=== PATIENT | female | born 1960 | race Caucasian/White ===

== ENCOUNTER → 2018-02-28 07:45 | Outpatient (CLI) | payer BC, SELFPAY ==
--- NOTE | 2018-02-28 08:07 | XR_ITS ---
XR cervical spine 5V Ordering Physician: Lenora Qureshi Patient Age: 57 years: Female. Neck discomfort. Neck pain HISTORY: ITS.REASON: NECK DISCOMFORT,SOA,LBP,ABD PAIN TECHNIQUE: Five-view cervical spine series COMPARISON :None FINDINGS . Normal alignment.. No fracture or subluxation. Normal prevertebral soft tissues. Cervical spondylosis and degenerative changes most pronounced C5/6 and possibly early changes C4/5. C5-C6: Degenerative disc space narrowing is seen at C5-C6 with posterior hypertrophic endplate ridging believe at this level the oblique view show the posterior hypertrophic spurring encroaching upon right foramen. C4/5. Disc spaces well-maintained but suspect there may be some very subtle central endplate hypertrophy/spurring at midline. Likely minor central spurring. No foraminal encroachment. Facets appear satisfactory . C1-C2 relationships appear normal IMPRESSION: Cervical spondylosis and developing degenerative changes C-spine most evident C5-C6 At C5-C6 disc space narrowing with mild posterior hypertrophic ridging along with mild right foraminal encroachment due to early spurring
--- NOTE | 2018-02-28 08:07 | XR_ITS ---
XR lumbar spine min 4V Ordering Physician: Lenora Qureshi Patient Age: 57 years: Female HISTORY: ITS.REASON: NECK DISCOMFORT,SOA,LBP,ABD PAIN TECHNIQUE: 5 view lumbar spine series COMPARISON :Chest film from today FINDINGS Chest films from today showed a generous dextro scoliosis at the mid thoracic spine. ; With this there is also a less pronounced compensatorylevoscoliosis at the upper lumbar region upper lumbar spine and thoracolumbar region. With this there is slight disc space narrowing to the right at L1/2, and borderline disc space narrowing to the right right at L2/3.. Marginal osteophytes seen to be most evident on the right at L1/2 L2/3 where levocurvature is most evident. Less evident marginal osteophytes L3/4.. Also borderline disc space narrowing at L4/5 and L5/S1 on final review. . Vertebral bodies intact Pedicles transverse processes appear satisfactory.. SI joints unremarkable. Previous cholecystectomy noted. Moderate stool throughout colon. No renal calculi evident. Small phleboliths pelvic basin IMPRESSION Levoscoliosis upper lumbar spine.....With this there is associated space narrowing to right at L1/2; & Borderline disc space narrowing to the right at L2/3. Marginal osteophytes most notable at levels. Also borderline disc space narrowing at L4/5 and L5/S1 on final review.
--- NOTE | 2018-02-28 08:07 | XR_ITS ---
XR chest 2V HISTORY: Dyspnea ITS.REASON: NECK DISCOMFORT,SOA,LBP,ABD PAIN ORDERING PHYSICIAN: Lenora Qureshi PATIENT AGE: 57 years Technique: PA and lateral chest COMPARISON: None FINDINGS: Lungs are well expanded and clear with no active disease. Heart upper normal size. Normal pulmonary vascularity Abida and mediastinal structures appear satisfactory. Small calcified hilar nodes reflecting old granulomatous disease.. Small 5 x 6 mm calcified granuloma seen at mid right lung, likely at the anterior segment right upper RUL on lateral view. Also small calcified granuloma seen at the medial right lung base. . No pleural effusion or pleural findings. Chest wall unremarkable Scoliosis spine with notable dextroscoliosis mid T-spine (estimate 25 degrees on this nonstanding film ( There is associated compensatory levocurvature at the upper lumbar spine & gradual levocurvature at the upper thoracic spine. Clips upper RUQ from previous cholecystectomy . IMPRESSION:. No acute cardiopulmonary findings. Heart upper normal in size. . Old granulomatous disease Scoliosis.
--- NOTE | 2018-02-28 08:07 | XR_ITS ---
XR abdomen min 2V COMPARISON: None HISTORY: Generalized abdominal pain TECHNIQUE: KUB and upright abdomen FINDINGS: There are scattered stool and gas in the ascending and transverse colon. There is no significant small bowel gas and there are no air-fluid levels. There is no free air. There are surgical clips right upper quadrant from previous cholecystectomy. There is mild diffuse levoscoliotic curvature of the thoracolumbar junction with mild multilevel degenerative changes of the upper lumbar spine. IMPRESSION: Essentially nondiagnostic abdomen
[2018-02-28 09:03] LABS: Basophils % 0.7 % (0.1-2.0); Eosinophils # 0.2 K/mm3 (0.0-0.4); Eosinophils % 3.2 % (0.1-12.0); Hematocrit 40.8 % (37.0-47.0); Hemoglobin 13.1 g/dL (12.2-16.2); Lymphocytes # 1.6 K/mm3 (0.7-4.5); Lymphocytes % 33.2 K/mm3 (10-50); Mean Corpuscular HGB Conc 32.1 g/dL (31.8-35.4); Mean Corpuscular Hemoglobin 27.9 pg (27.0-31.2); Mean Corpuscular Volume 86.9 fl (81-99); Mean Platelet Volume 7.4 fl (7.4-10.4); Monocytes # 0.4 K/mm3 (0.1-1.0); Monocytes % 7.6 % (1.7-9.3); Neutrophils # 2.6 K/mm3 (1.8-7.8); Neutrophils % 55.4 % (37.0-80.0); Platelet Count 268 K/mm3 (142-424); Red Cell Distribution Width 12.8 % (11.5-17.5); White Blood Count 4.7 K/mm3 (4.8-10.8)
[2018-02-28 09:15] LABS: Hemoglobin A1C 6.2 % (0.0-7.0)
[2018-02-28 09:47] LABS: Alanine Aminotransferase 21 U/L (12-78); Albumin Level 3.5 gm/dL (3.4-5.0); Anion Gap 10.8 mEq/L (5-15); Aspartate Amino Transferase 12 U/L (15-37); Bilirubin,Total 0.3 mg/dL (0.2-1.0); Blood Urea Nitrogen 14 mg/dL (7-18); Calcium 8.6 mg/dL (8.5-10.1); Carbon Dioxide 29 mmol/L (21.0-32.0); Chloride 107 mmol/L (98-107); Cholesterol 182 mg/dL (140-200); Creatinine,Serum 0.72 mg/dL (0.55-1.02); Estimated Glomerular Filt Rate 83 ml/min (>60); GFR (African American) 100 ML/MIN (>60); Globulin 3.4 gm/dl (1.3-3.2); Glucose 99 mg/dL (74-106); HDL Cholesterol 57 mg/dL (29-89); Potassium 3.8 mmoL/L (3.5-5.1); Sodium 143 mmol/L (136-145); Total Protein,Serum 6.9 gm/dL (6.4-8.2); Triglycerides 136 mg/dL (30-200); VLDL Cholesterol 27 mg/dL (0-40)
[2018-02-28 09:48] LABS: Alkaline Phosphatase 101 U/L (46-116); Amylase 56 U/L (25-125); Chol/HDL Ratio 3.2 (1-3.5); LDL Cholesterol 98 mg/dL (0-130); Lipase 190 u/L (73-393); Thyroid Stimulating Hormone 5.42 uIU/ml (0.358-3.740)
[2018-03-01 07:16] LABS: Hep A Ab, IgM Negative (Negative); Hepatitis B Core Antibody IgM Negative (Negative); Hepatitis B Surface Antigen Negative (Negative)
[2018-03-01 13:16] LABS: Hepatitis C Antibody <0.1 s/co ratio (0.0-0.9)
== END ==
PROVIDERS: PCP Nurse Practitioner Family; Visit Provider Nurse Practitioner Family
DX: M54.2 Cervicalgia (principal); R06.02 Shortness of breath; M54.5 Low back pain; R10.9 Unspecified abdominal pain; Z13.220 Encounter for screening for lipoid disorders; Z13.6 Encounter for screening for cardiovascular disorders
CPT/HCPCS: 36415; 71046; 72050; 72110; 74019; 80053; 80061; 80074; 82150; 83036; 83690; 84443; 85025; 86677

== ENCOUNTER → 2018-09-05 13:37 | Outpatient (CLI) | payer BC, SELFPAY ==
[2018-09-05 14:05] LABS: Troponin I < 0.02 ng/ml (0.00-0.06)
== END ==
PROVIDERS: Visit Provider Nurse Practitioner Family
DX: R07.89 Other chest pain (principal)
CPT/HCPCS: 36415; 84484

== ENCOUNTER → 2018-09-27 09:52 | Outpatient (CLI) | payer BC, SELFPAY ==
--- NOTE | 2018-09-27 09:57 | CA_ITS ---
PROCEDURE: 2-D M-mode and color Doppler study INDICATIONS FOR THE TEST: Chest pain COPD Heart Murmur Tobacco Smoking Palpitations FatigueX Syncope Edema HypertensionXDiabetes Mellitus Rheumatic Fever SOB DOEXObesity HyperlipidemiaX Family History HD Additional History LF FXN PRE CABG,CAD PATIENT INFORMATION HEIGHT: 65 WEIGHT:155 GENDER: Female B/P:120/69 2-D/M-MODE INTERPRETATION: 2-D MEASUREMENTS OBSERVED VALUES IN CMS Right Ventricular Dimension (RVDd) 2.1 Interventricular Septum (Thickness)(IVsd) .9 Left Ventricular Internal Dimensions(LVIDd) 5.2 Left Ventricular Posterior Wall (Thickness)(LVPWd) .7 Aortic Root 3.1 Aortic Cusp Separation 1.7 Left Atrial Dimensions (LAD) 3.3 2D 1. Left atrium is mildly enlarged, left ventricle is normal size, mild concentric left ventricular hypertrophy, visually estimated ejection fraction 55% with no regional wall motion abnormality. 2. The right atrium and right ventricle are normal size and contractility. 3. The aortic valve is minimally thickened and fibrosed. 4. The mitral and tricuspid valve leaflets are minimally thickened 5. The pulmonic valve is poorly visualized. 6. No significant pericardial effusion noted. DOPPLER INTERROGATION: Doppler interrogation of the aortic, mitral and tricuspid valvular presence of mild mitral and tricuspid regurgitation, calculated right ventricular systolic pressure 34 mmHg, grade 1 diastolic dysfunction seen with tissue Doppler evidence of raised left atrial pressure. CONCLUSION: 1. Mildly enlarged left atrium, normal left ventricular size, mild concentric left ventricular hypertrophy, visually estimated ejection fraction of 55%, grade 1 diastolic dysfunction seen with tissue Doppler evidence of pressure. 2. Mild mitral and tricuspid regurgitation, calculated right ventricular systolic pressure is 34 mmHg. 3. No significant pericardial effusion noted.
== END ==
PROVIDERS: PCP Urology; Visit Provider Urology
DX: Z01.818 Encounter for other preprocedural examination (principal); I25.10 Atherosclerotic heart disease of native coronary artery without angina pectoris
CPT/HCPCS: 93306

== ENCOUNTER 2018-11-29 08:02 | Outpatient (RCR) | payer BC, SELFPAY | END 2019-01-23 13:53 | disposition home or self-care (01) | LOC: PT 08:02 | PROVIDERS: Visit Provider Internal Medicine | DX: Z95.1 Presence of aortocoronary bypass graft (principal) | CPT/HCPCS: 93798 ==

== ENCOUNTER → 2019-07-19 10:21 | Outpatient (CLI) | payer BC, SELFPAY ==
[2019-07-19 11:24] LABS: Basophils % 0.6 % (0.1-2.0); Eosinophils # 0.2 K/mm3 (0.0-0.4); Hematocrit 44.5 % (37.0-47.0); Lymphocytes # 1.4 K/mm3 (0.7-4.5); Lymphocytes % 18.3 % (10-50); Mean Corpuscular HGB Conc 31.5 g/dL (31.8-35.4); Mean Corpuscular Hemoglobin 27.1 pg (27.0-31.2); Mean Corpuscular Volume 85.9 fl (81-99); Mean Platelet Volume 7.7 fl (7.4-10.4); Monocytes # 0.5 K/mm3 (0.1-1.0); Monocytes % 6.5 % (1.7-9.3); Neutrophils # 5.6 K/mm3 (1.8-7.8); Neutrophils % 72.6 % (37.0-80.0); Platelet Count 301 K/mm3 (142-424); Red Blood Count 5.18 M/mm3 (4.20-5.40); Red Cell Distribution Width 14.2 % (11.5-17.5); White Blood Count 7.7 K/mm3 (4.8-10.8)
[2019-07-19 13:27] LABS: Anion Gap 10.7 mEq/L (5-15); Blood Urea Nitrogen 12 mg/dl (7-17); Calcium 9.7 mg/dl (8.4-10.2); Carbon Dioxide 30 mmol/L (22.0-30.0); Chloride 103 mmol/L (98-107); Estimated Glomerular Filt Rate 102 ml/min (>60); GFR (African American) 123 ML/MIN (>60); Glucose 88 mg/dl (74-100); Potassium 4.7 mmoL/L (3.5-5.1); Sodium 139 mmol/L (136-145)
[2019-07-19 13:40] LABS: Troponin I < 0.01 ng/ml (0.00-0.034)
== END ==
PROVIDERS: Visit Provider Urology
DX: I25.10 Atherosclerotic heart disease of native coronary artery without angina pectoris (principal); E78.5 Hyperlipidemia, unspecified; I10 Essential (primary) hypertension; R07.89 Other chest pain; Z82.49 Family history of ischemic heart disease and other diseases of the circulatory system; Z95.1 Presence of aortocoronary bypass graft
CPT/HCPCS: 36415; 80048; 84484; 85025

== ENCOUNTER → 2019-07-24 07:03 | Outpatient (CLI) | payer BC, SELFPAY ==
--- NOTE | 2019-07-24 | CA_ITS ---
APPROVED REPORT Exam: Exercise Treadmill Technologist: luis enrique oakley, Ht: 5 ft 5 in Wt: 145 lbs BSA: 1.73 m2 HR: 63 bpm BP: 172/82 mmHg Indications: CP, SOB Medical History Medications: Lisinopril,,,,, Asa,,,,, Citalopram,,,,, Lasix,,,,, Lipitor,,,,, OmPERAZOLE,,,,, Allergies: Codiene, Naproxen Cardiac Risk Factors: HTN, Hyperlipidemia, Smoking Stress Test Details Test: Berto HR Resting HR: 59 bpm Max Heart Rate (APMHR): 159 bpm Max HR Achieved: 142 bpm Target HR (85% APMHR): 135 bpm % of APMHR: 89 Recovery HR: 87 bpm BP Resting BP: 172/82 mmHg Max BP: 194/92 mmHg Recovery BP: 194.0/92.0 mmHg ECG Resting ECG: Sinus Rhythm Clinical Exercise duration: 08:16 min Highest Stage Achieved: Stage 3: 3.4 mph at 14% grade. Exercise capacity: 10.1 METs Stress ECG Conclusion Berto Protocol completed. Test stopped due to SOB, which resolved during recovery, No chest pain. Occ PVC. Greater than 1.5mm ST depression. Images to follow. Test Summary REST . . . . . . . Standing REST . . . . . . . Sitting REST 02:56 0.0 0.0 59 . 172/ 82 . . Stage 1 01:00 10.0 1.7 87 . . . . Stage 1 02:00 10.0 1.7 104 . 168/ 88 . . Stage 1 03:00 10.0 1.7 105 . 168/ 88 . . Stage 2 01:00 12.0 2.5 112 . . . . Stage 2 02:00 12.0 2.5 113 . . . . Stage 2 03:00 12.0 2.5 114 . 170/100 . . Stage 3 01:00 14.0 3.4 129 . . . . Stage 3 . . . . . . . Cardiolite injected Stage 3 02:00 14.0 3.4 140 . . . . Stage 3 02:16 14.0 3.4 140 . . . Stop exercise at 08:16 RECOVERY 01:00 0.0 0.0 108 . . . . RECOVERY 02:00 0.0 0.0 85 . 194/ 92 . . RECOVERY 03:00 0.0 0.0 75 . 168/ 86 . . RECOVERY 04:00 0.0 0.0 76 . 155/ 79 . . RECOVERY 05:00 0.0 0.0 72 . 148/ 78 . . RECOVERY 05:24 0.0 0.0 0 . 148/ 78 . . Electronically signed by : Masood Lay, 07/24/2019 19:52:23
--- NOTE | 2019-07-24 07:04 | NM_ITS ---
APPROVED REPORT Exam: Nuclear Stress Test Indication: Chest pain, SOB, HTN, High cholesterol, Family history, CAD, CABG Patient Location: Outpatient Stress Tech: Kelsi Solorzano [place] Tech:Michelle Mejía, ARRT, RT (R)(N) Ht: 5 ft 5 in Wt: 145 lbs Bra Size: 38D HR: 63 bpm BP: 172/82 mmHg BSA: 1.73 m2 BMI: 24.1 History: Chest pain, SOB, HTN, High cholesterol, Family history, CAD, CABG Procedure: Patient exercised on Berto protocol 8:16 minutes and sec, resting heart rate 63 bpm, resting blood pressure 172/82 mmHg, with exercise maximum heart rate achived was 142 bpm which is Greater than 85 % of the maximum predicted heart rate and blood pressure was 194/92 mmHg. Test was stopped due to SOB. Patient denied any complaint of chest pain. Patient has Good exercise capacity, achieved 10.1 METs of workload on treadmill, the blood pressure response to exercise was Adequate. Electrocardiogram Resting electrocardiogram showed sinus rhythm nonspecific ST-T changes, with exercise there is additional 1.[address] segment depression noted from the baseline EKG. The EKG portion of the exercise Myoview is nondiagnostic due to baseline abnormal EKG. Cardiac Stress and Resting SPECT Images: Cardiac Stress and Resting SPECT images were obtained using technetium 99m Myoview 32.7 mCi stress and 10.96 mCi at rest. Gated SPECT with analysis of segmental wall motion and calculation of the ejection fraction also done. Cardiac stress and resting SPECT images show uniform myocardial activity without segmental perfusion abnormality, computer derived ejection fraction is over 65% with no regional wall motion abnormality, right ventricle is normal size and contractility. Conclusion: 1. The EKG portion of the exercise Myoview is nondiagnostic due to baseline abnormal EKG. Patient has good exercise capacity achieved 10.1 mets of workload on treadmill, the blood pressure response to exercise was adequate, there was no exercise-induced chest discomfort. 2. No scintigraphic evidence of reversible ischemia seen at this level of exercise, computer derived ejection fraction is over 65% with no regional wall motion abnormality. 3. Normal exercise Myoview study. Electronically signed by : Masood Lay, 07/24/2019 19:56:04
--- NOTE | 2019-07-24 07:20 | HMH.ITSHM ---
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 []OMEPRAZOLE METOPROLOL LISINOPRIL FUROSEMIDE CITALOPRAM ATORVASTATIN ASA
== END ==
PROVIDERS: PCP Internal Medicine; Visit Provider Urology
DX: R07.89 Other chest pain (principal); I25.10 Atherosclerotic heart disease of native coronary artery without angina pectoris; E78.5 Hyperlipidemia, unspecified; I10 Essential (primary) hypertension; Z82.49 Family history of ischemic heart disease and other diseases of the circulatory system; Z95.1 Presence of aortocoronary bypass graft
CPT/HCPCS: 78452; 93017; A9502

== ENCOUNTER → 2020-06-25 15:18 | Outpatient (CLI) | payer BC, SELFPAY ==
[2020-06-25 15:41] LABS: Basophils % 0.8 % (0.1-2.0); Eosinophils # 0.1 K/mm3 (0.0-0.4); Eosinophils % 2.1 % (0.1-12.0); Hematocrit 44.5 % (37.0-47.0); Hemoglobin 13.7 g/dL (12.2-16.2); Lymphocytes # 1.9 K/mm3 (0.7-4.5); Mean Corpuscular HGB Conc 30.8 g/dL (31.8-35.4); Mean Corpuscular Hemoglobin 27.7 pg (27.0-31.2); Mean Corpuscular Volume 90.1 fl (81-99); Mean Platelet Volume 7.5 fl (7.4-10.4); Monocytes # 0.4 K/mm3 (0.1-1.0); Monocytes % 6.3 % (1.7-9.3); Neutrophils # 3.5 K/mm3 (1.8-7.8); Neutrophils % 58.8 % (37.0-80.0); Platelet Count 237 K/mm3 (142-424); Red Blood Count 4.94 M/mm3 (4.20-5.40); Red Cell Distribution Width 13.5 % (11.5-17.5); White Blood Count 5.9 K/mm3 (4.8-10.8)
[2020-06-25 17:09] LABS: Chloride 106 mmol/L (98-107); Potassium 4.4 mmoL/L (3.5-5.1); Sodium 142 mmol/L (136-145)
[2020-06-25 17:11] LABS: Bilirubin,Unconjugated 0.3 mg/dL (0.0-1.1); Blood Urea Nitrogen 14 mg/dl (7-17); Estimated Glomerular Filt Rate 85 ml/min (>60); GFR (African American) 103 ML/MIN (>60)
[2020-06-25 17:12] LABS: Alanine Aminotransferase 14 U/L (12-78); Albumin Level 4.4 g/dl (3.5-5.0); Alkaline Phosphatase 113 U/L (38-126); Anion Gap 10.4 mEq/L (5-15); Aspartate Amino Transferase 29 U/L (14-36); Bilirubin,Direct 0.1 mg/dl (0.0-0.4); Bilirubin,Indirect 0.4 mg/dL (0.0-0.9); Bilirubin,Total 0.5 mg/dl (0.2-1.3); Calcium 9.7 mg/dl (8.4-10.2); Carbon Dioxide 30 mmol/L (22.0-30.0); Chol/HDL Ratio 2.1 (1-3.5); Cholesterol 178 mg/dl (140-200); Glucose 102 mg/dl (74-100); HDL Cholesterol 85 mg/dl (40-60); Total Protein,Serum 7.4 g/dl (6.3-8.2); Triglycerides 155 mg/dl (30-150); VLDL Cholesterol 31 mg/dL (0-40)
[2020-06-25 17:24] LABS: Direct LDL Cholesterol 54.53 mg/dL (100-129)
[2020-06-25 17:30] LABS: Free Thyroxine Index 2.6 ug/dL (5.93-13.13); T4 (Thyroxine) 9.4 ug/dl (5.53-11.0); Triiodothryronine (T3) Uptake 28 % (23.5-40.5)
[2020-06-25 17:44] LABS: Thyroid Stimulating Hormone 2.59 uIU/mL (0.465-4.68)
== END ==
PROVIDERS: Visit Provider Physician Assistant
DX: I25.10 Atherosclerotic heart disease of native coronary artery without angina pectoris (principal); R07.89 Other chest pain; R06.02 Shortness of breath; R94.31 Abnormal electrocardiogram [ECG] [EKG]; E78.5 Hyperlipidemia, unspecified; I10 Essential (primary) hypertension; Z82.49 Family history of ischemic heart disease and other diseases of the circulatory system; Z95.1 Presence of aortocoronary bypass graft; Z79.899 Other long term (current) drug therapy
CPT/HCPCS: 36415; 80048; 80061; 80076; 84436; 84443; 84479; 85025

== ENCOUNTER → 2021-03-04 07:17 | Outpatient (CLI) | payer BC, SELFPAY ==
--- NOTE | 2021-03-04 | CA_ITS ---
APPROVED REPORT Exam: Exercise Treadmill Technologist: Aida Guzman Ht: 5 ft 5 in Wt: 149 lbs BSA: 1.75 m2 HR: 53 bpm BP: 162/81 mmHg Indications: Chest pain Medical History Medications: Lisinopril,,,,, Omeprazole,,,,, Aspirin,,,,, Metoprolol,,,,, Atorvastatin,,,,, Stress Test Details Test: Berto HR Resting HR: 61 bpm Max Heart Rate (APMHR): 158.097267 bpm Max HR Achieved: 128 bpm Target HR (85% APMHR): 134.080969 bpm % of APMHR: 81.01 Recovery HR: 63 bpm BP Resting BP: 162.0/81.0 mmHg Max BP: 180.0/92.0 mmHg Recovery BP: 143.0/81.0 mmHg ECG Resting ECG: Sinus bradycardia, rightward axis, ST abnormalities inferiorly and laterally. Clinical Exercise duration: 07:01 min Highest Stage Achieved: Exercise capacity: 10.1 METs Stress ECG Conclusion Patient exercised 7:01 on Berto Protocol. Test stopped due to shortness of air. Symptoms: No chest pain. Arrhythmias/Ectopy: None ST-T Changes: Exaggeration of baseline ST abnormalities plus 1.[address] depression in leads V3 and V4. Conclusion: Non-diagnostic GXT. Blunted heart rate response on beta-claudette. Myoview images reported separately. Test Summary . Standing . . . . . . Myoview Injected . . Stop exercise at 07:01 . . . . . . Electronically signed by : Masood Lay MD 03/05/2021 06:22:34
--- NOTE | 2021-03-04 07:17 | NM_ITS ---
APPROVED REPORT Exam: Nuclear Stress Test Indication: Chest pain, SOB, CAD, CABG, HTN, Family history Patient Location: Outpatient Stress Tech: Aida Guzman [place] Tech:Michelle Mejía, ARRT, RT (R)(N) Ht: 5 ft 5 in Wt: 145 lbs Bra Size: 38C HR: 53 bpm BP: 162/81 mmHg BSA: 1.73 m2 BMI: 24.1 History: Chest pain, SOB, CAD, CABG, HTN, Family history Procedure: Patient exercised on Berto protocol 7:01 minutes and sec, resting heart rate 53 bpm, resting blood pressure 162/81 mmHg, with exercise maximum heart rate achived was 128 bpm which is 81 % of the maximum predicted heart rate and blood pressure was 176/82 mmHg. Test was stopped due to SOA. Patient denied any complaint of chest pain. Patient has good exercise capacity, achieved 10.1 METs of workload on treadmill, the blood pressure response to exercise was Adequate. Electrocardiogram Resting electrocardiogram shows sinus rhythm nonspecific ST-T changes, with exercise there is additional [address] segment depression noted from the baseline EKG, patient did not achieve the target heart rate, the EKG portion of the exercise Myoview is nondiagnostic due to baseline abnormal EKG as well as patient not achieving the target heart rate. Cardiac Stress and Resting SPECT Images: Cardiac Stress and Resting SPECT images were obtained using technetium 99m Myoview 29.6 mCi stress and 10.37 mCi at rest. Gated SPECT for analysis of segmental wall motion and calculation of the ejection fraction also done. Prone images were also obtained. Cardiac stress and resting SPECT images show uniform myocardial activity without segmental perfusion abnormality, computer derived ejection fraction is 59% with no regional wall motion abnormality, right ventricle is normal size and contractility. Conclusion: 1. The EKG portion of the exercise Myoview is nondiagnostic due to baseline abnormal EKG, patient did not achieve the target heart rate, patient has good exercise capacity achieved 10.1 METs of workload on treadmill, the blood pressure response to exercise was adequate, there was no exercise-induced chest discomfort. 2. No scintigraphic evidence of reversible ischemia seen at this level of exercise, computer derived ejection fraction is 59% with no regional wall motion abnormality, right ventricle is normal size and contractility. Electronically signed by : Masood Lay MD 03/05/2021 06:32:40
--- NOTE | 2021-03-04 09:27 | CA_ITS ---
APPROVED REPORT EXAM: Comprehensive 2D, Doppler, and color-flow Echocardiogram Computer Technician: Dior Golden, NIC, RVS Ht: 5 ft 5 in Wt: 149lbs BSA: 1.75 BP: 136/79 mmHg Indications: CP, SOA, CAD-CABG, Stent 2D Dimensions Aortic Root 2.69 cm LA Volume 48.70 mL Left Atrium 3.26 cm LA Volume Index 27.796985 mL/m2 (M/F) 16-34 LVOT 1.69 cm (M/F) 1.5-2.5 M-Mode Dimensions RVDd 2.65 cm (0.9-2.6) LA Diam 3.53 cm (1.9-4.0) LVDd 4.53 cm (3.5-5.7) Ao Diam 3.03 cm (2.0-3.7) LVDs 2.92 cm (3.5-5.7) IVSd 0.94 cm (0.6-1.1) PWd 0.77 cm (0.6-1.1) EF (Teich) 65.10% EPSs 0.84 cm FS 35.50% EDV (Teich) 93.90 mL TAPSE 2.33 (<1.7) ESV (Teich) 32.80 mL LV Diastology E Decel Time 190.00 (160-240 msec) E/A Ratio 1.33 MED E' 6.40 (< 7 cm/sec) MED A' 7.40 cm/s E'/MED E' Ratio 13.95 (>14) LAT E' 11.80 (<10 cm/sec) LAT A' 6.70 cm/s E/LAT E' Ratio 7.57 (>14) Aortic Valve LVOT Max 98.00 (70-110 cm/s) LVOT VTI 23.91 cm AoV Peak Jose. 158.00 (50-130 cm/s) AO Peak GR. 10.00 mmHg AO Mean GR. 5.00 (<5 mmHg) AO VTI 35.34 (18-25 cm) DARLEEN (VTI) 1.52 (2.5-4.5 cm2) Mitral Valve MV A Velocity 67.00 (40-130 cm/s) E/A Ratio 1.33 MV Decel. Time 190.00 (160-240 ms) MV Mean Gr. 1.30 (<2mmHg) Pulmonary Valve HI End VMAX 164.00 cm/s Tricuspid Valve TR P. Velocity 244.00 cm/s RAP Estimate 10.00 mmHg RVSP 33.80 mmHg Left Ventricle Left atrium is mildly enlarged, left ventricle is normal size, mild concentric left ventricular hypertrophy, visually estimated ejection fraction 55% with no regional wall motion abnormality, grade 2 diastolic dysfunction seen without tissue Doppler evidence of raise left atrial pressure. Right Ventricle Right atrium and right ventricle are normal size and contractility. Aortic Valve Aortic valve is minimally thickened and fibrosed, there is no aortic stenosis or significant aortic insufficiency. Mitral Valve Mitral valve is grossly normal, there is trace mitral regurgitation. Tricuspid Valve Tricuspid grossly normal, there is trace tricuspid regurgitation, calculated right ventricular systolic pressure is within normal range. Pulmonic Valve Pulmonic valve is poorly visualized. Great Vessels Aortic root is normal size. Inferior vena cava is normal size with normal inspiratory collapse. Pericardium No significant pericardial effusion noted. Conclusion 1. Mildly enlarged left atrium, normal left ventricular size, mild concentric left ventricular hypertrophy, visually estimated ejection fraction 55% with no regional wall motion abnormality, grade 2 diastolic dysfunction seen without tissue Doppler evidence of raise left atrial pressure. 2. Trace mitral and tricuspid regurgitation, calculated right ventricular systolic pressure within normal range. 3. No significant pericardial effusion. 4. Inferior vena cava is normal size with normal inspiratory collapse. Electronically signed by : Masood Lay MD 03/04/2021 21:42:16
--- NOTE | 2021-03-04 10:58 | HMH.ITSHM ---
Current Home Medications as stated by this patient Pinky Spears or logistics service representative. []OMEPRAZOLE ASA METOPROLOL LINSNOPRIL ATORVASTATIN
== END ==
LOC: RAD 07:17
PROVIDERS: PCP Nurse Practitioner Family; Visit Provider Urology
DX: I20.8 Other forms of angina pectoris (principal); I10 Essential (primary) hypertension; E78.49 Other hyperlipidemia; Z82.49 Family history of ischemic heart disease and other diseases of the circulatory system; Z95.1 Presence of aortocoronary bypass graft
CPT/HCPCS: 78452; 93017; 93306; A9502

== ENCOUNTER → 2022-08-06 11:35 | Outpatient (CLI) | payer BC, SELFPAY ==
[2022-08-06 12:19] LABS: Basophils # 0.1 K/mm3 (0-0.2); Basophils % 1.3 % (0.1-2.0); Eosinophils # 0.1 K/mm3 (0.0-0.4); Eosinophils % 2.8 % (0.1-12.0); Hematocrit 42.2 % (37.0-47.0); Hemoglobin 12.8 g/dL (12.2-16.2); Lymphocytes # 1.6 K/mm3 (0.7-4.5); Lymphocytes % 32.2 % (10-50); Mean Corpuscular HGB Conc 30.4 g/dL (31.8-35.4); Mean Corpuscular Hemoglobin 26.9 pg (27.0-31.2); Mean Corpuscular Volume 88.6 fl (81-99); Mean Platelet Volume 7.2 fl (7.4-10.4); Monocytes # 0.3 K/mm3 (0.1-1.0); Monocytes % 6.2 % (1.7-9.3); Neutrophils # 2.8 K/mm3 (1.8-7.8); Neutrophils % 57.5 % (37.0-80.0); Platelet Count 247 K/mm3 (142-424); Red Blood Count 4.76 M/mm3 (4.20-5.40); Red Cell Distribution Width 13.7 % (11.5-17.5); White Blood Count 4.9 K/mm3 (4.8-10.8)
[2022-08-06 12:48] LABS: Alanine Aminotransferase 17 U/L (12-78); Albumin Level 4.1 g/dl (3.5-5.0); Alkaline Phosphatase 122 U/L (38-126); Anion Gap 8.7 mEq/L (5-15); Aspartate Amino Transferase 29 U/L (14-36); Bilirubin,Indirect 0.5 mg/dL (0.0-0.9); Bilirubin,Total 0.5 mg/dl (0.2-1.3); Bilirubin,Unconjugated 0.5 mg/dL (0.0-1.1); Blood Urea Nitrogen 12 mg/dl (7-17); Calcium 8.7 mg/dl (8.4-10.2); Carbon Dioxide 30 mmol/L (22.0-30.0); Chloride 104 mmol/L (98-107); Cholesterol 234 mg/dl (140-200); Estimated Glomerular Filt Rate 84 ml/min (>60); GFR (African American) 102 ML/MIN (>60); Glucose 90 mg/dl (74-100); HDL Cholesterol 79 mg/dl (40-60); Potassium 3.7 mmoL/L (3.5-5.1); Sodium 139 mmol/L (136-145); Total Protein,Serum 6.5 g/dl (6.3-8.2); Triglycerides 98 mg/dl (30-150); VLDL Cholesterol 20 mg/dL (0-40)
[2022-08-06 12:58] LABS: Direct LDL Cholesterol 118.96 mg/dL (100-129)
[2022-08-06 13:04] LABS: Free T4 (Free Thyroxine) 0.95 ng/dl (0.78-2.19)
[2022-08-06 13:18] LABS: Thyroid Stimulating Hormone 2.23 uIU/mL (0.465-4.68)
== END ==
LOC: LAB 11:36
PROVIDERS: PCP Family Medicine; Visit Provider Nurse Practitioner
DX: R07.89 Other chest pain (principal); I25.10 Atherosclerotic heart disease of native coronary artery without angina pectoris; I10 Essential (primary) hypertension; E78.49 Other hyperlipidemia; Z82.49 Family history of ischemic heart disease and other diseases of the circulatory system; Z95.1 Presence of aortocoronary bypass graft
CPT/HCPCS: 36415; 80048; 80061; 80076; 84439; 84443; 85025

== ENCOUNTER → 2022-09-23 06:04 | Outpatient (CLI) | payer BC, SELFPAY ==
--- NOTE | 2022-09-23 06:05 | CA_ITS ---
APPROVED REPORT Exam: Exercise Treadmill Technologist: Cassandra Colunga, Ht: 5 ft 5 in Wt: 152 lbs BSA: 1.76 m2 HR: 52 bpm BP: 168/86 mmHg Rhythm: sinus torri, ST abn inferiorly and laterally Medical History Medications: Omeprazole,,,,, Aspirin,,,,, Atorvastatin,,,,, Metoprolol Succinate,,,,, Polytrim,,,,, Cardiac Risk Factors: FHX of CAD Stress Test Details Test: Berto HR Resting HR: 61 bpm Max Heart Rate (APMHR): 156 bpm Max HR Achieved: 191 bpm Target HR (85% APMHR): 133 bpm % of APMHR: 122 Recovery HR: 81 bpm BP Resting BP: 172/96 mmHg Max BP: 196/89 mmHg Recovery BP: 196.0/89.0 mmHg ECG Resting ECG: sinus torri, ST abn inferiorly and laterally Stress ECG: mm ST depression and T-wave changes in the inferolateral leads Arrhythmia: None Recovery ECG: Return to baseline ECG Recovery Arrhythmia: None Clinical Exercise duration: 08:15 min Highest Stage Achieved: Exercise capacity: 10.1 METs Stress ECG Conclusion During Berto protocol, the patient walked 8:15 minutes. The patient exhibited good exercise capacity for age and sex. She was hypertensive at baseline with adequate BP response to exercise. Berto protocol was stopped due to elevated BP (SBP approaching 200 mmHg). No chest pain noted. No arrhythmias noted. Baseline ECG demonstrates sinus bradycardia, early repolarization with diffuse upsloping ST-segments, and Q-waves in the inferior leads. At peak stress, ECG demonstrated 1mm ST depression and T-wave changes in the inferolateral leads, with subsequent return to baseline within 3 minutes of recovery. GXT findings are suggestive of possible ishcemia. Myoview images reported separately. Test Summary REST . . . . . . . Sitting REST . . . . . . . Standing REST 04:35 0.0 0.0 61 . 172/ 96 . . Stage 1 01:00 10.0 1.7 76 . . . . Stage 1 02:00 10.0 1.7 80 . . . . Stage 1 03:00 10.0 1.7 82 . 182/ 84 . . Stage 2 01:00 12.0 2.5 91 . . . . Stage 2 02:00 12.0 2.5 99 . . . . Stage 2 03:00 12.0 2.5 105 . 184/ 84 . . Stage 3 01:00 14.0 3.4 119 . . . . Stage 3 02:00 14.0 3.4 129 . . . . Stage 3 02:15 14.0 3.4 132 . . . Stop exercise at 08:15 RECOVERY 01:00 0.0 0.0 90 . . . . RECOVERY 02:00 0.0 0.0 75 . 196/ 89 . . RECOVERY 03:00 0.0 0.0 65 . 196/ 89 . . RECOVERY 04:00 0.0 0.0 60 . 178/ 80 . . RECOVERY 05:00 0.0 0.0 62 . 160/ 78 . . RECOVERY 05:18 0.0 0.0 64 . 160/ 78 . . Electronically signed by : Danna Anderson, 09/24/2022 00:08:14
--- NOTE | 2022-09-23 06:05 | NM_ITS ---
APPROVED REPORT Exam: Nuclear Stress Test Indication: fatigue Patient Location: Outpatient Stress Tech: Cassandra WEBBER Tech:Saritha JACKI Crain RT(R)(N) Ht: 5 ft 5 in Wt: 145 lbs Bra Size: 38c HR: 61 bpm BP: 172/96 mmHg BSA: 1.73 m2 Rhythm: NSR BMI: 24.1 History: FATIGUE Procedure: Patient exercised on Berto protocol 8:15 minutes and sec, resting heart rate 61 bpm, resting blood pressure 172/96 mmHg, with exercise maximum heart rate achived was 191 bpm which is 122 % of the maximum predicted heart rate and blood pressure was 196/89 mmHg. Patient denied any complaint of chest pain. Patient has good exercise capacity, achieved 10.0 METs of workload on treadmill, the blood pressure response to exercise was adequate. Cardiac Stress and Resting SPECT Images: Cardiac Stress and Resting SPECT images were obtained using technetium 99m Myoview 31.3 mCi stress and 10.98 mCi at rest. Resting and stress imaging in supine and prone positions demonstrate no evidence of fixed or reversible defects. Gated imaging demonstrates normal LV global and regional systolic function. LVEF is calculated at 55% Conclusion: No evidence of fixed or reversible defects. Gated imaging demonstrates normal LV global and regional systolic function. LVEF is calculated at 55% Electronically signed by : Danna Anderson, 09/24/2022 00:14:25
== END ==
LOC: RAD 06:05
PROVIDERS: PCP Family Medicine; Visit Provider Nurse Practitioner
DX: R07.89 Other chest pain (principal); I10 Essential (primary) hypertension; E78.49 Other hyperlipidemia; I25.10 Atherosclerotic heart disease of native coronary artery without angina pectoris; M79.601 Pain in right arm; R94.31 Abnormal electrocardiogram [ECG] [EKG]; Z82.49 Family history of ischemic heart disease and other diseases of the circulatory system; Z95.1 Presence of aortocoronary bypass graft
CPT/HCPCS: 78452; 93017; 93306; A9502

== ENCOUNTER 2022-12-23 19:18 | Emergency (ER) | payer BC, SELFPAY ==
[2022-12-23 19:20] VITALS: BP 140/78; PULSE 74; RESP 18; TEMP 36.7; O2SAT 98; BMI 25.2
--- NOTE | 2022-12-23 19:22 | XR_ITS ---
PROCEDURE INFORMATION: Exam: XR Left Foot Exam date and time: 12/23/2022 7:39 PM Age: 62 years old Clinical indication: Injury or trauma; Fall; Blunt trauma; Foot; Left TECHNIQUE: Imaging protocol: Radiologic exam of the left foot. Views: 3 or more views. COMPARISON: No relevant prior studies available. FINDINGS: Bones/joints: Calcaneus enthesophytes. Partially fused apophysis to the navicular bone, which is a developmental variant. No acute fracture or dislocation. Soft tissues: Normal. IMPRESSION: No acute fracture or dislocation.
--- NOTE | 2022-12-23 19:22 | XR_ITS ---
PROCEDURE INFORMATION: Exam: XR Left Ankle Exam date and time: 12/23/2022 7:41 PM Age: 62 years old Clinical indication: Injury or trauma; Fall; Blunt trauma; Ankle; Left TECHNIQUE: Imaging protocol: Radiologic exam of the left ankle. Views: 3 or more views. COMPARISON: CR XR FOOT LT MIN 3V 23/12/2022 19:39 FINDINGS: Bones/joints: Calcaneus enthesophytes. Nondisplaced medial malleolus fracture. Cortical irregularity of the distal tip of the lateral malleolus of indeterminate significance. Small tibiotalar joint effusion. Soft tissues: Mild hematoma overlying the medial malleolus. Moderate hematoma overlying the lateral malleolus. IMPRESSION: 1. Nondisplaced medial malleolus fracture. 2. Cortical irregularity of the distal tip of the lateral malleolus of indeterminate significance. Avulsion fracture cannot be entirely excluded.
--- NOTE | 2022-12-23 19:34 | EXP.UTC ---
Discharge Plan Disposition Patient Disposition: Home, Self-Care Condition: Good Prescriptions Prescriptions: No Action omeprazole 20 mg capsule,delayed release(DR/EC) 20 mg PO DAILY Qty: 30 5RF atorvastatin 80 mg tablet 80 mg PO QHS Qty: 30 5RF aspirin [Adult Low Dose Aspirin] 81 mg tablet,delayed release (DR/EC) 81 mg PO DAILY metoprolol succinate 50 mg tablet extended release 24 hr 50 mg PO DAILY Rx Instructions: TAKE 1 TABLET BY MOUTH DAILY Referrals Follow up/Referrals: Walker Arthur JR, MD [Physician] - See instructions (Call office for appointment) Russell Son MD [Primary Care Provider] - See instructions Activity Restrictions/Add. Instructions Additional Instructions/Restrictions: *No weight bearing use crutches to get around *RICE, Rest the extremity, Ice 15-20 minutes 3-4 times daily, Compress- wear the [place] wrap as discussed as much as possible to help reduce swelling and pain, Elevate the extremity when at rest *Walking boot is for support and help control swelling, Be sure that is not to tight but not to loose either *Elevate when resting? *Ibuprofen 600-800mg every 6-8 hours as needed for pain an inflammation. If need something more can take Tylenol in between doses of Ibuprofen to help Immediately follow up with your family doctor for new or worsening of symptoms, or no noticeable improvement over the next 3-5 days Call Office in the morning for appointment Clinical Impressions Clinical Impression: Ankle fracture Qualifiers: Encounter type: initial encounter Fracture type: closed Laterality: left Qualified Code(s): S82.892A - Other fracture of left lower leg, initial encounter for closed fracture Instructions Patient Instructions: How to Use Crutches, How To Perform RICE (Rest, Ice, Compress, Elevate), How to Use a Walking Boot [place] ED [place] Lat[place] [facility] [place] General Stated complaint: [id number] LT foot inj Mode of Arrival: Ambulatory Source of Information: Patient Limitations: No Limitations Time Seen by Provider: 12/23/22 19:34 Description of Symptoms (Recalled from Triage Doc. by RN): PATIENT C/O INJURY TO LEFT FOOT AND ANKLE AFTER FALLING TONIGHT HEENT Symptoms (Recalled from RN notes): No Resp Symptoms (Recalled from RN notes): No Skin Symptoms (Recalled from RN notes): No MS Symptoms (Recalled from RN notes): Yes Functional Status (Recalled from RN notes): WNL History of Present Illness Provider Complaint: Patient states that she slipped in some wet grass at home and twisted her left ankle under her States that she immediately had swelling and bruising so she came in to get it checked out Denies any other injury Related Data Home Medications Medication Instructions Recorded Confirmed aspirin 81 mg tablet,delayed 81 mg PO DAILY 07/26/17 09/29/22 release (Adult Low Dose Aspirin) metoprolol succinate 50 mg 50 mg PO DAILY Hypertension 12/23/22 12/23/22 tablet,extended release 24 hr Previous Rx's Medication Instructions Recorded atorvastatin 80 mg tablet 80 mg PO QHS #30 tabs 09/29/22 omeprazole 20 mg capsule,delayed 20 mg PO DAILY #30 caps 09/29/22 release Allergies Allergy/AdvReac Type Severity Reaction Status Date / Time codeine [CODEINE] Allergy Mild Verified 09/29/22 14:29 naproxen [NAPROXEN] Allergy Unknown Verified 09/29/22 14:29 Worker's Comp Is this a Worker's Comp case?: No [facility] Disclaimer: The information contained in this section may have been updated after the patient was seen, as this information can be updated by other users. Medical History Atypical chest pain Daytime somnolence Restless sleeper Sinus bradycardia SOB (shortness of breath) Surgical History History of History of hysterectomy Family History Moth
[2022-12-23 20:33] VITALS: BP 140/78; PULSE 74; RESP 18; TEMP 36.7; O2SAT 98
== END 2022-12-23 20:51 | disposition home or self-care (01) ==
PROVIDERS: Emergency Provider Nurse Practitioner; PCP Family Medicine
DX: S82.55XA Nondisplaced fracture of medial malleolus of left tibia, initial encounter for closed fracture (principal); G47.19 Other hypersomnia; G47.9 Sleep disorder, unspecified; W01.198A Fall on same level from slipping, tripping and stumbling with subsequent striking against other object, initial encounter
CPT/HCPCS: 73610; 73630; 99204; 99212; G0463

== ENCOUNTER → 2023-01-21 09:31 | Outpatient (CLI) | payer BC, SELFPAY ==
--- NOTE | 2023-01-21 09:38 | XR_ITS ---
FINAL REPORT CLINICAL HISTORY: lt ankle fx. fell and broke left ankle in december of 2022 COMPARISON: 12/23/2022 FINDINGS: LEFT ANKLE There is a healing transverse fracture of the medial malleolus, which was noted on the prior exam of December 23.there are irregular fragments at the tip of the lateral malleolus, of uncertain chronicity, possibly representing avulsion fractures. The visualized joint spaces are normally aligned. There is diffuse soft tissue swelling, more prominent on the lateral aspect of the ankle. IMPRESSION: Healing transverse fracture of the medial malleolus, with irregular fragments at the tip of the lateral malleolus that may represent avulsion fractures. Diffuse soft tissue swelling persists particularly involving the lateral aspect of the ankle. Reviewed, Interpreted and Dictated by Rolando Lincoln MD Transcribed by Jessa Benitez Authenticated and [facility]
== END ==
PROVIDERS: PCP Family Medicine; Visit Provider Orthopaedic Surgery
DX: S82.845D Nondisplaced bimalleolar fracture of left lower leg, subsequent encounter for closed fracture with routine healing (principal); W18.39XD Other fall on same level, subsequent encounter
CPT/HCPCS: 73610

== ENCOUNTER → 2023-02-18 08:58 | Outpatient (CLI) | payer BC, SELFPAY ==
--- NOTE | 2023-02-18 09:02 | XR_ITS ---
FINAL REPORT CLINICAL HISTORY: Left ankle fx COMPARISON: 01/21/2023 FINDINGS: LEFT ANKLE Three views demonstrate no acute fracture or dislocation. There is been interval improvement in previously seen fracture of the medial malleolus. There are stable calcifications inferior to the lateral malleolus which may represent sequela of prior injury. There is lateral soft tissue swelling noted IMPRESSION: Interval improvement of medial malleolar fracture. Reviewed, Interpreted and Dictated by Med Naik III, MD Transcribed by Ena Cast Authenticated and [facility]
== END ==
LOC: RAD 08:59
PROVIDERS: PCP Family Medicine; Visit Provider Orthopaedic Surgery
DX: S82.892A Other fracture of left lower leg, initial encounter for closed fracture (principal)
CPT/HCPCS: 73610

== ENCOUNTER 2023-12-29 09:50 | Outpatient (CLI) | payer BC, SELFPAY ==
[2023-12-29 17:07] LABS: Basophils % 0.7 % (0.1-2.0); Eosinophils # 0.1 K/mm3 (0.0-0.4); Eosinophils % 1.5 % (0.1-12.0); Hematocrit 44.2 % (37.0-47.0); Lymphocytes # 1.4 K/mm3 (0.7-4.5); Lymphocytes % 21.2 % (10-50); Mean Corpuscular HGB Conc 31.7 g/dL (31.8-35.4); Mean Corpuscular Hemoglobin 28.4 pg (27.0-31.2); Mean Corpuscular Volume 89.5 fl (81-99); Mean Platelet Volume 9.5 fl (7.4-10.4); Monocytes # 0.4 K/mm3 (0.1-1.0); Monocytes % 6.7 % (1.7-9.3); Neutrophils # 4.6 K/mm3 (1.8-7.8); Neutrophils % 69.9 % (37.0-80.0); Platelet Count 298 K/mm3 (142-424); Red Blood Count 4.94 M/mm3 (4.20-5.40); Red Cell Distribution Width 13.7 % (11.5-17.5); White Blood Count 6.5 K/mm3 (4.8-10.8)
[2023-12-29 17:26] LABS: Alanine Aminotransferase 22 U/L (12-78); Albumin/Globulin Ratio 1.2 (1.1-1.8); Alkaline Phosphatase 99 U/L (38-126); Anion Gap 9.3 mEq/L (5-15); Aspartate Amino Transferase 42 U/L (14-36); Bilirubin,Total 0.8 mg/dl (0.2-1.3); Blood Urea Nitrogen 9 mg/dl (7-17); Calcium 9.3 mg/dl (8.4-10.2); Carbon Dioxide 28 mmol/L (22.0-30.0); Chloride 107 mmol/L (98-107); Chol/HDL Ratio 3.5 (1-3.5); Cholesterol 259 mg/dl (140-200); Estimated Glomerular Filt Rate 100 ml/min (>60); GFR (African American) 121 ML/MIN (>60); Globulin 3.3 g/dL (1.3-3.2); Glucose 85 mg/dl (74-100); HDL Cholesterol 74 mg/dl (40-60); Potassium 4.3 mmoL/L (3.5-5.1); Sodium 140 mmol/L (136-145); Total Protein,Serum 7.3 g/dl (6.3-8.2); Triglycerides 172 mg/dl (30-150); VLDL Cholesterol 34 mg/dL (0-40)
[2023-12-29 17:37] LABS: Direct LDL Cholesterol 146.34 mg/dL (100-129)
[2023-12-29 17:56] LABS: Thyroid Stimulating Hormone 2.05 uIU/mL (0.465-4.68)
== END 2023-12-29 23:59 | disposition home or self-care (01) ==
LOC: LAB.DROPOF 12-30 09:51
PROVIDERS: PCP Family Medicine; Visit Provider Family Medicine
DX: I10 Essential (primary) hypertension (principal); E78.49 Other hyperlipidemia; K21.9 Gastro-esophageal reflux disease without esophagitis
CPT/HCPCS: 80050; 80053; 80061; 84443; 85025

== ENCOUNTER 2024-05-16 10:49 | Outpatient (CLI) | payer BC, SELFPAY ==
[2024-05-16 16:46] LABS: Basophils % 0.8 % (0.1-2.0); Eosinophils # 0.1 K/mm3 (0.0-0.4); Hematocrit 43.5 % (37.0-47.0); Hemoglobin 13.5 g/dL (12.2-16.2); Lymphocytes # 1.4 K/mm3 (0.7-4.5); Lymphocytes % 27.4 % (10-50); Mean Corpuscular Hemoglobin 27.3 pg (27.0-31.2); Mean Corpuscular Volume 87.9 fl (81-99); Mean Platelet Volume 11.1 fl (7.4-10.4); Monocytes # 0.5 K/mm3 (0.1-1.0); Monocytes % 9.7 % (1.7-9.3); Neutrophils % 59.9 % (37.0-80.0); Platelet Count 292 K/mm3 (142-424); Red Blood Count 4.95 M/mm3 (4.20-5.40); Red Cell Distribution Width 13.1 % (11.5-17.5)
[2024-05-16 17:09] LABS: Alanine Aminotransferase 18 U/L (12-78); Albumin Level 4.3 g/dl (3.5-5.0); Albumin/Globulin Ratio 1.7 (1.1-1.8); Alkaline Phosphatase 115 U/L (38-126); Anion Gap 9.3 mEq/L (5-15); Aspartate Amino Transferase 31 U/L (14-36); Bilirubin,Total 0.5 mg/dl (0.2-1.3); Blood Urea Nitrogen 12 mg/dl (7-17); Calcium 9.5 mg/dl (8.4-10.2); Carbon Dioxide 30 mmol/L (22.0-30.0); Chloride 105 mmol/L (98-107); Chol/HDL Ratio 3.2 (1-3.5); Cholesterol 238 mg/dl (140-200); Estimated Glomerular Filt Rate 84 ml/min (>60); GFR (African American) 102 ML/MIN (>60); Globulin 2.6 g/dL (1.3-3.2); Glucose 82 mg/dl (74-100); HDL Cholesterol 74 mg/dl (40-60); Potassium 4.3 mmoL/L (3.5-5.1); Sodium 140 mmol/L (136-145); Total Protein,Serum 6.9 g/dl (6.3-8.2); Triglycerides 128 mg/dl (30-150); VLDL Cholesterol 26 mg/dL (0-40)
[2024-05-16 17:20] LABS: Direct LDL Cholesterol 136.37 mg/dL (100-129)
[2024-05-16 17:40] LABS: Thyroid Stimulating Hormone 3.39 uIU/mL (0.465-4.68)
[2024-05-16 18:38] LABS: HIV Combo NEGATIVE (Negative)
[2024-05-16 18:45] LABS: Hepatitis C Ab Qual. W/ RFX NEGATIVE (Negative)
== END 2024-05-16 23:59 | disposition home or self-care (01) ==
LOC: LAB.DROPOF 05-17 13:27
PROVIDERS: PCP Family Medicine; Visit Provider Family Medicine
DX: Z11.4 Encounter for screening for human immunodeficiency virus [HIV]; Z11.59 Encounter for screening for other viral diseases; E78.5 Hyperlipidemia, unspecified
CPT/HCPCS: 80053; 80061; 84443; 85025; 86803; 87389

== ENCOUNTER 2024-05-26 09:58 | Outpatient (CLI) | payer BC, SELFPAY ==
--- NOTE | 2024-05-26 09:59 | US_ITS ---
FINAL REPORT TECHNIQUE: Ultrasound images of the abdomen were obtained. CLINICAL HISTORY: abd pain FINDINGS: The pancreas is obscured by bowel gas. There is fatty infiltration of the liver. The gallbladder is not identified, probably surgically absent. The common duct measures 5 mm. The right kidney measures 10.7 cm in length and is normal in echogenicity without hydronephrosis. The left kidney measures 10.6 cm in length and is normal in echogenicity without hydronephrosis. The spleen is unremarkable. There is a small amount of plaque in the abdominal aorta. The vena cava is unremarkable. IMPRESSION: Status postcholecystectomy. Reviewed, Interpreted and Dictated by Rolando Lincoln MD Transcribed by Sharon Huynh Authenticated and . [facility]
== END 2024-05-26 23:59 | disposition home or self-care (01) ==
LOC: RAD 09:59
PROVIDERS: PCP Family Medicine; Visit Provider Family Medicine
DX: R10.9 Unspecified abdominal pain (principal); Z98.890 Other specified postprocedural states
CPT/HCPCS: 76700

== ENCOUNTER 2024-12-22 10:57 | Outpatient (CLI) | payer BC, SELFPAY ==
[2024-12-22 18:57] LABS: Hematocrit 41.8 % (37.0-47.0); Hemoglobin 13.1 g/dL (12.2-16.2); Immature Granulocytes % 0.4 %; Mean Corpuscular HGB Conc 31.3 g/dL (31.8-35.4); Mean Corpuscular Hemoglobin 27.5 pg (27.0-31.2); Mean Corpuscular Volume 87.8 fl (81-99); Nucleated Red Blood Cells % 0 %; Platelet Count 283 K/mm3 (142-424); Red Blood Count 4.76 M/mm3 (4.20-5.40); Red Cell Distribution Width-SD 41.9 fL; White Blood Count 5.6 K/mm3 (4.8-10.8)
[2024-12-22 19:41] LABS: Albumin Level 4.2 g/dl (3.5-5.0); Chloride 108 mmol/L (98-107); Potassium 3.9 mmoL/L (3.5-5.1); Sodium 142 mmol/L (136-145)
[2024-12-22 19:43] LABS: Blood Urea Nitrogen 11 mg/dl (7-17); Creatinine,Serum 0.80 mg/dl (0.52-1.04); Estimated Glomerular Filt Rate 72 ml/min (>60); GFR (African American) 87 ML/MIN (>60)
[2024-12-22 19:44] LABS: Alanine Aminotransferase 19 U/L (12-78); Albumin/Globulin Ratio 1.6 (1.1-1.8); Alkaline Phosphatase 117 U/L (38-126); Anion Gap 10.9 mEq/L (5-15); Aspartate Amino Transferase 32 U/L (14-36); Bilirubin,Total 0.7 mg/dl (0.2-1.3); Calcium 9.1 mg/dl (8.4-10.2); Carbon Dioxide 27 mmol/L (22.0-30.0); Cholesterol 178 mg/dl (140-200); Globulin 2.6 g/dL (1.3-3.2); Glucose 99 mg/dl (74-100); Total Protein,Serum 6.8 g/dl (6.3-8.2); Triglycerides 96 mg/dl (30-150)
[2024-12-22 19:45] LABS: HDL Cholesterol 83 mg/dl (40-60)
[2024-12-22 20:15] LABS: Thyroid Stimulating Hormone 1.69 uIU/mL (0.465-4.68)
--- OUTSIDE RECORDS SUMMARY | 2024-12-25 11:40 | XMS_ITS | Clinical Summary ---
Author Organization Healthcare Address [address] [place] [address] Care Team Providers Care Parking Station Attendant Name Role Phone Sanaz Gonzalez Primary Care Provider [phone] Family History Medical History Relation Name Comments Stroke Father Arthritis Mother CABG Mother Diabetes Mother Hyperlipidemia Mother Hypertension Mother Relation Name Status Comments Father Mother Social History Tobacco Use Types Packs/Day Years Used Date Smoking Tobacco: Never Alcohol Use Standard Drinks/Week Comments No 0 (1 standard drink = 0.6 oz pur e alcohol) Comments Unknown Sex and Gender Information Value Date Recorded Sex Assigned at Not on file Legal Sex Female 7:44 PM EDT Gender Identity Not on file Sexual Orientation Not on file Last Filed Vital Signs Vital Sign Reading Time Taken Comments Blood Pressure 141/73 09/23/2022 8:27 AM EDT Pulse 62 09/23/2022 8:27 AM EDT Temperature - - Respiratory Rate - - Oxygen Saturation - - Inhaled Oxygen Concentration - - Weight 68.9 kg (152 lb) 09/23/2022 8:27 AM EDT Height 165.1 cm (5' 5 ) 09/23/2022 8:27 AM EDT Body Mass Index 25.29 09/23/2022 8:27 AM EDT Plan of Treatment Health Maintenance Due Date Last Done Comments [facility]-Bone Density Scan 1958 [facility]-Depression Screening 1958 [facility]-/Child/Adol SDOH Screenings 1960 [facility]- SDOH Screenings 1976 [facility]-Adult SDOH Screenings 1976 CT Colonography 2003 Colonoscopy 2003 FIT-DNA 2003 FIT 2003 FOBT 2003 Sigmoidoscopy 2003 [facility]-Colorectal Cancer Screening 2003 [facility]-Pneumococcal Vaccine: 50 + Years (1 of 1 - PCV) 2008 [facility]-Zoster Vaccines (1 of 2) 2008 [id number] Vaccine (1 - 20 24-25 season) 2024 [facility]-Influenza Vaccine (#1) 2025 [facility]-DTaP,Tdap,and Td Vaccine s (2 - Td or Tdap) 12/23/2025 12/24/2015 [facility]-RSV Vaccine: 60+ Years o r (1 - 1-dose 75+ series) 2033 HPV Vaccines Aged Out No longer eligi ble based on patient's age to complete this topic [facility]-HIB Vaccines Aged Out No longer e ligible based on patient's age to complete this topic [facility]-Hepatitis A Vaccines Aged Out No longer eligible based on patient's age to complete this topic [facility]-IPV Vaccines Aged Out No longer e ligible based on patient's age to complete this topic [facility]-Rotavirus Vaccines Aged Out No lo nger eligible based on patient's age to complete this topic Insurance [employer] Care Teams Parking Station Attendant Relationship Specialty Start Date End Date Sanaz Gonzalez PA [address] [place] [address] PCP - General 09/13/20
--- OUTSIDE RECORDS SUMMARY | 2024-12-25 11:40 | XMS_ITS | Clinical Summary ---
[facility] Organization [facility] Address [address] [place] [address] Care Team Providers Care Security Project Manager Name Role Phone Unavailable Primary Care Provider Unavailabl e Social History Tobacco Use Types Packs/Day Years Used Date Smoking Tobacco: Never Assessed Abuse Screen Answer Date Recorded Unsafe at Home or Work/School Not on file Feels Threatened by Someone? Not on file Does Anyone Keep You from Co ntacting Others or Doint Things Outside the Home? Not on file 02/12/2023 Physical Sign of Abuse Present Not on file 1 Housing Stability Answer Date Recorded Current Living Arrangements Not on file 01/31 Potentially Unsafe Housing Conditions Not on delicia e 02/12/2023 Family and Community Support Answer Tyler e Recorded Help with Day-to-Day Activities Not on file 02/12/2023 Lonely or Isolated Not on file 02/12/2023 Employment Answer Date Recorded Do you want help finding or keeping work or a dasha b? Not on file 02/12/2023 Disabilities Answer Date Recorded Concentrating, Remembering, or Making Decisions Difficulty Not on file 02/12/2023 Doing Errands Independently Difficulty Not on fi le 02/12/2023 Education Answer Date Recorded Help with school or training? Not on file Preferred Language Not on file 02/12/2023 Comments Unknown Sex and Gender Information Value Date Recorded Sex Assigned at Not on file Legal Sex Female 4:53 PM EDT Gender Identity Not on file Sexual Orientation Not on file Plan of Treatment Health Maintenance Due Date Last Done Comments ANNUAL PHYSICAL 1960 DXA SCAN 1960 HEPATITIS C SCREENING 1958 TDAP/TD VACCINES (1 - Tdap) 1977 MAMMOGRAM 1998 COLOGUARD 2003 COLON CANCER SCREENING 5 YEAR SIGMOIDOSCOPY 2003 COLONOSCOPY 2003 COL[address] CANCER SCREENING 2003 CT COLONOGRAPHY 2003 FECAL OCCULT BLOOD TEST 2003 FIT Testing (1 year) 2003 Pneumococcal Vaccine 50+ (1 of 1 - PCV) 2008 ZOSTER VACCINE (1 of 2) 2008 COVID-19 Vaccine ( - 2023- season) 2024 INFLUENZA VACCINE 01/31/2025
== END 2024-12-22 23:59 | disposition home or self-care (01) ==
LOC: LAB.DROPOF 12-25 10:58
PROVIDERS: PCP Nurse Practitioner Family; Visit Provider Nurse Practitioner Family
DX: I10 Essential (primary) hypertension (principal); E78.49 Other hyperlipidemia
CPT/HCPCS: 80053; 80061; 84443; 85025

== ENCOUNTER 2025-02-20 09:38 | Outpatient (CLI) | payer BC, SELFPAY | END 2025-02-20 23:59 | disposition home or self-care (01) | LOC: LAB.DROPOF 02-21 14:11 | PROVIDERS: PCP Nurse Practitioner Family; Visit Provider Nurse Practitioner Family | DX: R39.9 Unspecified symptoms and signs involving the genitourinary system (principal) | CPT/HCPCS: 87086 ==